=== PATIENT | female | born 2000 | race Caucasian/White ===

== ENCOUNTER 2022-09-25 05:07 | Outpatient (CLI) | payer BC, SELFPAY | END 2022-09-25 05:08 | disposition home or self-care (01) | LOC: AMB 10-24 11:23 | PROVIDERS: Visit Provider Family Medicine | DX: R20.0 Anesthesia of skin (principal); R53.1 Weakness | CPT/HCPCS: A0427; A0998 ==

== ENCOUNTER 2022-09-25 05:35 | Emergency (ER) | payer BC, SELFPAY ==
[2022-09-25] VITALS (11 sets, daily range): BP systolic 123–136; BP diastolic 73–99; PULSE 71–101; RESP 20; TEMP 36.1; O2SAT 90–100; BMI 26.6
--- NOTE | 2022-09-25 05:45 | ED.NURSE ---
Dr Cantor updated on pt symptoms
--- NOTE | 2022-09-25 06:15 | CRLHL7_ITS ---
For Patients: As a result of the Century Cures Act, medical imaging exams and procedure reports are released immediately into your electronic medical record. You may view this report before your referring provider. If you have questions, please contact your health care provider. INDICATION: Headache TECHNIQUE: CT head without contrast. COMPARISON: None. FINDINGS: CSF spaces: Within normal limits for age. Brain parenchyma and extra-axial spaces: The flores-white differentiation is normal. No sign of intracranial hemorrhage, or midline shift. No extra-axial fluid collection. Skull base and calvarium: The visualized paranasal sinuses and mastoid air cells demonstrate no acute or significant findings. The visualized orbits are grossly unremarkable. No skull fractures. IMPRESSION: Unremarkable noncontrast head CT. Please note that all CT scans at this facility use dose modulation, iterative reconstruction, and/or weight-based dosing when appropriate to reduce radiation dose to as low as reasonably achievable. Dictated by Zeb Ruffin MD @ 09/25/2022 8:58:40 AM (Electronically Signed)
--- NOTE | 2022-09-25 06:40 | ED.GENADULT ---
HPI - General Adult General Date Seen: 09/25/22 Chief complaint: Neuro Symptoms/Altered Deficit Stated complaint: Right sided body numbness Time Seen by Provider: 09/25/22 05:49 Source: patient Mode of arrival: ambulatory Limitations: no limitations History of Present Illness HPI narrative: Patient is a 22-year-old [employer] student who woke up at 4:45 a.m. this morning with a sensation of numbness in her right leg. She felt a move into her right arm and right side of her face. She acknowledges that she was hyperventilating and nervous. Soon she became numb on the left side of her face and into her left leg. She claims to be under a great deal of stress in dealing with a friend who has recently broken up with her boyfriend and another friend who was threatening suicide. She is brought in by a roommate has been dealing with the same issues with her. She denies any previous history or panic attack. She was fearful that the symptoms represented a stroke. 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 She takes no medications regularly. She has had no difficulty with swallowing, vision, walking. No recent illness. Related Data Previous Rx's Medication Instructions Recorded lorazepam 0.5 mg tablet 0.5 mg PO DAILY PRN panic #5 tabs 09/25/22 lorazepam 0.5 mg tablet 0.5 mg PO DAILY PRN panic 09/25/22 attack(s) #5 tabs lorazepam 0.5 mg tablet 0.5 mg PO DAILY PRN panic 09/25/22 attack(s) #5 tabs Allergies Allergy/AdvReac Type Severity Reaction Status Date / Time amoxicillin Allergy Anaphylaxis Verified 09/25/22 05:43 Review of Systems Narrative: Review of systems is outlined above otherwise noted to be negative. [facility] Social History Smoking Status: Never smoker Do you use any of these nicotine containing products: Vaping Products Second hand tobacco smoke exposure: No How often do you have a drink containing alcohol: never AUDIT-C Alcohol total score: 0 Non-prescribed substance use: denies use Exam Narrative: Exam Narrative: Vitals noted. HEENT: Conjunctiva clear. Neck is supple without adenopathy, thyromegaly, carotid bruit. Lungs: Clear to auscultation in all [place]. No wheezes, rales, rhonchi. Heart: Regular rate and rhythm without murmur. Abdomen: Soft and nontender. No guarding, rigidity, rebound. Bowel sounds are normal. No palpable masses. Extremities: No cyanosis or edema. Good distal pulses. Skin: No abnormalities noted of the exposed skin. Neurologic: Awake, alert, fully oriented. Neurologic exam is nonfocal. Cranial nerves are intact. Normal motor and sensory exam. Normal coordination. Const: Vital Signs, click to edit/add: Vital Signs - 24 hr 09/25/22 05:38 09/25/22 05:48 09/25/22 05:49 Temperature 97.0 F L Pulse Rate 84 89 Pulse Rate [Right Pulse Oximeter] 88 Respiratory Rate 20 Blood Pressure 136/89 Blood Pressure [Ri ght Upper Arm] 127/82 Pulse Oximetry 97 96 90 09/25/22 06:00 09/25/22 06:02 09/25/22 06:03 Temperature Pulse Rate 77 77 71 Pulse Rate [Right Pulse Oximeter] Respiratory Rate Blood Pressure 123/73 Blood Pressure [Ri ght Upper Arm] Pulse Oximetry 100 100 100 09/25/22 06:15 Temperature Pulse Rate 74 Pulse Rate [Right Pulse Oximeter] Respiratory Rate Blood Pressure Blood Pressure [Ri ght Upper Arm] Pulse Oximetry 100 Course Course Hospital Course: Patient was seen and examined. CT of her head without contrast was normal. This is done mainly to help reassure her. Had a long discussion with the patient and her friend in have reassured her that she has no risk factors for stroke and no symptoms consistent with stroke. I suspect that this is an acute stress reaction she tends to agree. She has never had anxiety like this before and would prefer not to use medication but is open to the idea of having something available to her if this were to happen again. Vital Signs Vital signs: Initial Vital Signs Temperature 97.0 F L 09/25/22 05:38 Temperature Source Temporal Artery Scan 09/25/22 05:38 Pulse Rate 88 09/25/22 05:38 Pulse Rhythm 09/25/22 05:38 Respiratory Rate 20 09/25/22 05:38 Blood Pressure 127/82 09/25/22 05:38 Blood Pressure Mean 97 09/25/22 05:38 Blood Pressure Position Sitting 09/25/22 05:38 Pulse Oximetry 97 09/25/22 05:38 Vital Signs Temperature 97.0 F L 09/25/22 05:38 Pulse Rate 88 09/25/22 05:38 Respiratory Rate 20 09/25/22 05:38 Blood Pressure 127/82 09/25/22 05:38 Pulse Oximetry 97 09/25/22 05:38 Temperature 97.0 F L 09/25/22 05:38 Pulse Rate 74 09/25/22 06:15 Respiratory Rate 20 09/25/22 05:38 Blood Pressure 123/73 09/25/22 06:02 Pulse Oximetry 100 09/25/22 06:15 Discharge Plan Discharge Clinical Impression: Anxiety in acute stress reaction Patient Disposition: Home, Self-Care Condition: Improved Additional Instructions: Avoid hyperventilation. If anxiety is an ongoing issue schedule a clinic appt to discuss options. Use Lorazepam 0.5 mg as needed for panic attacks. Prescriptions: New lorazepam 0.5 mg tablet 0.5 mg PO DAILY PRN (Reason: panic attack(s)) Qty: 5 0RF lorazepam 0.5 mg tablet 0.5 mg PO DAILY PRN (Reason: panic) Qty: 5 0RF lorazepam 0.5 mg tablet 0.5 mg PO DAILY PRN (Reason: panic attack(s)) Qty: 5 0RF Stand Alone Forms: [facility] Info Instructions
== END 2022-09-25 07:02 | disposition home or self-care (01) ==
LOC: ED 06:51
PROVIDERS: Emergency Provider Family Medicine; Referring Provider Pediatrics
DX: F41.1 Generalized anxiety disorder (principal); F43.0 Acute stress reaction
CPT/HCPCS: 70450; 99282; 99284